=== PATIENT | male | born 1975 | race Hispanic/Latino ===

== ENCOUNTER 2017-08-23 13:39 | Outpatient (CLI) | payer BC ==
--- NOTE | 2017-08-23 17:27 | ULT ---
ULTRASOUND RETROPERITONEUM COMPLETE: (RENAL) Date: 08/23/17 HISTORY: 41-year-old male with history of nephrolithiasis (calculus of kidney). COMPARISON: No prior imaging studies of any modality, of any body part, is currently available of [facility]. The patient reportedly has had a CT at an unknown outside facility. FINDINGS: There is a tiny, 1 cm, round, hypoechoic, exophytic lesion protruding from the lower pole cortex of the left kidney. This is too small to definitively characterize. It is statistically most likely to be a cyst. There are several scattered small hyperechoic nonshadowing foci in the bilateral renal parenchyma. T he largest of these is 0.8 x 0.7 x 0.3 cm at the parenchyma of the left interpolar region. This may or may not represent a calculus. Other possibilities for these hyperechoic structures include portio ns of blood vessels, tiny angiomyolipomas, or artifact. Bilateral renal parenchymal echogenicity and parenchymal thickness are normal. There is no hydronephrosis bilaterally. Right kidney measures 13 x 5.5 x 7 cm. Left kidney measures 13.5 x 6 x 6.5 cm. The elongation of the bilateral kidneys raises the possibility of duplication or partial duplication of the renal collecting systems. Cursory images of the urinary bladder demonstrate borderline wall thickening, but no other gross abn ormality. IMPRESSION: 1. No hydronephrosis. 2. Nonspecific, tiny, 1 cm, hypoechoic left renal lower pole cortical lesion, too small to definiti vely characterize, perhaps a cyst. 3. In general, ultrasound is relatively inaccurate for the evaluation of renal calculi. For that, n oncontrast CT is the best modality. MARY Tang POS: ZEUS
== END 2017-08-23 13:40 | disposition home or self-care (01) ==
LOC: ULT 13:39
PROVIDERS: ATTEND Physician Assistant
DX: N20.0 Calculus of kidney (principal); N28.89 Other specified disorders of kidney and ureter
CPT/HCPCS: 36415; 76770; 80053; 80061; 84443; 84550; 85025

== ENCOUNTER 2024-06-03 16:00 | Outpatient (CLI) | payer BC | END 2024-06-03 16:01 | disposition home or self-care (01) | LOC: SLEEPLAB 16:00 | PROVIDERS: ATTEND Family Medicine | DX: G47.33 Obstructive sleep apnea (adult) (pediatric) (principal); R53.83 Other fatigue; E66.9 Obesity, unspecified; R06.83 Snoring; G47.00 Insomnia, unspecified; Z68.41 Body mass index [BMI] 40.0-44.9, adult | CPT/HCPCS: 95800 ==

== ENCOUNTER 2024-10-16 13:52 | Outpatient (CLI) | payer BC | END 2024-10-16 13:53 | disposition home or self-care (01) | LOC: BICRAD 13:52 | PROVIDERS: ATTEND Family Medicine | DX: M25.561 Pain in right knee (principal); M17.11 Unilateral primary osteoarthritis, right knee ==